=== PATIENT | male | born 1975 | race African-American/Black ===

== ENCOUNTER 2020-06-02 01:31 | Emergency (ER) | payer OTHER ==
[2020-06-02] MEDS ORDERED: diphenhydrAMINE HCL 50 MG CAPSULE PO ONE (01:45)
[2020-06-02] MEDS ORDERED: predniSONE 20 MG TABLET (UD) PO ONE (01:52)
[2020-06-02] MEDS ORDERED: diphenhydrAMINE HCL 25 MG CAPSULE (FP) PO ONE ×2 (01:52→02:04)
[2020-06-02] MEDS ORDERED: IBUPROFEN 600 MG TABLET (FP) PO ONE ×2 (01:53→02:05)
[2020-06-02 01:56] VITALS: BMI 27.1
[2020-06-02] MEDS ORDERED: predniSONE 20 MG TABLET (UD) ONE (02:04)
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
[2020-06-02 03:31] VITALS: BP 143/89; PULSE 79; TEMP 98.1
== END 2020-06-02 03:32 | disposition home or self-care (01) ==
LOC: JER 01:31
DX: R60.9 Edema, unspecified (principal); T78.02XA Anaphylactic reaction due to shellfish (crustaceans), initial encounter
CPT/HCPCS: 99283-25

== ENCOUNTER 2020-08-11 07:54 | Day surgery (SDC) | payer OTHER ==
--- NOTE | 2020-08-10 07:50 | HP ---
[facility] - Chief Complaint Chief Complaint: right knee pain - Past Medical History Allergies/Adverse Reactions: Allergies Allergy/AdvReac Type Severity Reaction Status Date / Time Penicillins Allergy Rash Verified 08/09/20 14:00 shellfish derived Allergy Verified 08/09/20 14:43 - Current Medications Current Medications: Home Medications Medication Instructions Recorded NK [No Known Home Medication] 08/09/20 [facility]ellite Physical Exam - Physical Examination General Appearance: Well Nourished, Well Developed, Alert & Oriented x3 ENT: Clear Lung: Normal air movement Extremities: Other (right knee- + swelling, + ttp, decr rom, + mcmurrays, nvi) Neurological: Intact, Alert, Oriented [facility]ellite Impression/Plan - Impression/Plan Impression: right knee internal derangement Operative Procedure: right knee arthroscopy Date to be Performed: 08/10/20
--- NOTE | 2020-08-10 08:55 | HP ---
[facility] - Chief Complaint Chief Complaint: right elbow pain - Past Medical History Allergies/Adverse Reactions: Allergies Allergy/AdvReac Type Severity Reaction Status Date / Time Penicillins Allergy Rash Verified 08/09/20 14:00 shellfish derived Allergy Verified 08/09/20 14:43 - Current Medications Current Medications: Home Medications Medication Instructions Recorded NK [No Known Home Medication] 08/09/20 Satellite Physical Exam - Physical Examination General Appearance: Well Nourished, Well Developed, Alert & Oriented x3 ENT: Clear Lung: Normal air movement Extremities: Other (right elbow- + ttp laterally, decr rom, nvi) Neurological: Intact, Alert, Oriented Satellite Impression/Plan - Impression/Plan Impression: right lateral epicondylitis Operative Procedure: right elbow lateral epicondylectomy Date to be Performed: 08/10/20
[2020-08-10 15:35] VITALS: BMI 34.0
[2020-08-11] MEDS ORDERED: PROPOFOL 20 ML ONE ×2 (08:36→10:41)
[2020-08-11] MEDS ORDERED: MIDAZOLAM HCL 2 MG/2 ML SINGLE DOSE VIAL ONE ×2 (09:41)
[2020-08-11] MEDS ORDERED: fentaNYL CITRATE 250 MCG/5 ML VIAL ONE (09:41)
[2020-08-11] MEDS ORDERED: ROCURONIUM BROMIDE 50 MG/5 ML VIAL ONE (10:53)
[2020-08-11] MEDS ORDERED: BUPIVACAINE HCL/PF 0.5% (5MG/ML) 10 ML VIAL ONE (11:25)
[2020-08-11] MEDS ORDERED: BUPIVACAINE HCL/PF 0.5% (5 MG/ML) 30 ML VIAL IJ ONE (11:54)
--- NOTE | 2020-08-11 11:59 | OP ---
Operative Note - Note: Operative Date: 08/11/20 (tereso) Pre-Operative Diagnosis: right lateral epicondylitis Operation: right elbow lateral epicondylectomy, ECRB repair Post-Operative Diagnosis: Same as Pre-op Surgeon: Ab Morales Aerospace Engineer Officer Armament: Dony Pickard Anesthesiologist/NEWBORN PHOTOGRAPHER: Amadou Sales Anesthesia: General, Local Specimens Removed: lateral epicondyle Estimated Blood Loss (mls): 0 (tourniquet)
[2020-08-11] MEDS ORDERED: ONDANSETRON 4 MG/2 ML VIAL IVPUSH PRN (12:16)
[2020-08-11] MEDS ORDERED: oxyCODONE HCL 5 MG TABLET PO PRN (12:16)
[2020-08-11] MEDS ORDERED: PROMETHAZINE HCL 25 MG/1 ML VIAL IVPUSH PRN (12:16)
[2020-08-11] MEDS ORDERED: LACTATED RINGERS SOLUTION 1,000 ML IV SCH (12:30)
--- NOTE | 2020-08-11 12:39 | OP ---
DATE OF OPERATION: 08/11/2020 PREOPERATIVE DIAGNOSIS: Right elbow lateral epicondylitis, tear of extensor carpi radialis brevis tendon. POSTOPERATIVE DIAGNOSIS: Right elbow lateral epicondylitis, tear of extensor carpi radialis brevis tendon. PROCEDURE: Right elbow lateral epicondylectomy and repair of extensor carpi radialis brevis tendon. SURGEON: Ab Morales MD BILLBOARD MECHANIC: ESTEFANÍA Leggett ANESTHESIOLOGIST: Devon Sales MD ANESTHESIA: LMA anesthesia with local injection of 20 mL of 0.5% Marcaine, 1% lidocaine mix. DRAINS: None. COMPLICATIONS: None. SPECIMEN: Chronic inflammatory tissue right elbow lateral epicondyle. BLOOD LOSS: None. BLOOD GIVEN: None. FLUID REPLACEMENT: Plasma-Lyte 1000 mL. INDICATIONS: This patient is a 45-year-old male with a preoperative diagnosis of significant right elbow pain, chronic right elbow lateral epicondylitis and then a tear of the ECRB tendon. After understanding the potential risks, complications, alternatives and benefits of surgery versus nonsurgical treatment the patient elected to undergo this procedure. DESCRIPTION OF PROCEDURE: Patient was brought to the operating room, peripheral IV placed, IV sedation given. He was given 3 g of IV Ancef. LMA anesthesia was induced. Tourniquet was applied to the right upper arm. The right upper extremity was then prepped and draped in a sterile fashion, elevated, exsanguinated with an Esmarch bandage and tourniquet inflated to 250 mmHg. A small curvilinear incision was marked out and made directly over the point of maximum tenderness over the ECRB tendon origin with access to the [id number] position. Subcutaneous hemostasis was achieved with the bipolar cautery. Dissection was done with a Littler scissors down to the common extensor tendon. Small self-retaining retractors were placed into the wound. Next, a fresh No. 15 scalpel blade was utilized to make 2 longitudinal slits within the fibers of the ECRB and common extensor tendon, one in the central portion of the lateral epicondyle and one in the [id number] position. First, self-retaining retractors were placed into the fiber split of the ECRB tendon. Chronic inflammatory tissue was identified. It was excised with a fresh No. 15 scalpel blade and a curette. It was passed off the field as specimen. The lateral epicondyle was mildly decorticated, the tendon scraped and a small 0.062 K-wire was used to drill 6 drill holes within this longitudinal slit in the lateral epicondyle until marrow contents came out. The tear of the ECRB which was identified as well as the longitudinal split were then closed with 2-0 Vicryl suture in a running locking baseball stitch manner. Next, exactly the same thing was done in the [id number] position. There was no primary tear here. I made a longitudinal split. Area was decorticated with a curette, scraped and then repaired with the 2-0 Vicryl suture. It all came together quite nicely. Additional drill holes were made with a 0.062 K-wire more posterior to the middle split in the inferior portion of the lateral epicondyle. The area was then copiously irrigated and washed out. The deep fascia layer closed over the repair with 2-0 Vicryl suture. The deep dermal closed with 2-0 Vicryl suture. Final skin reapproximation was done a running subcuticular 4-0 Biosyn stitch. The area was then washed and dried, covered with Steri-Strips, 4 x 4's, Webril and a 5-inch posterior splint Ortho-Glass was applied and wrapped with 2 Rosas bandages. The tourniquet was taken down after a total tourniquet time of about 50 minutes. There were no complications during the case. The patient tolerated the procedure quite well and was brought to the ambulatory recovery room in stable condition. Luis [id number]
[2020-08-11] MEDS ORDERED: oxyCODONE HCL 5 MG TABLET ONE (13:17)
[2020-08-11] MEDS ORDERED: oxyCODONE HCL 5 MG TABLET PO ONE (13:20)
[2020-08-11 13:35] VITALS: TEMP 97.9
[2020-08-11 14:11] VITALS: BP 128/80; PULSE 75
--- NOTE | 2020-08-15 16:12 | PATH ---
Surgical Pathology Report Patient Name: JULI ALVAREZ Med. Rec. #: [id number] /Age/Gender: 1975 (Age: 45) / M Account: [id number] Location: [facility] AMBUL[facility] Taken: 08/11/2020 Received: 08/11/2020 Reported: 08/15/2020 Physicians: Ab Morales M.D. Specimen(s) Received RIGHT LATERAL EPICONDYLE Clinical History Right lateral epicondylitis Final Diagnosis UPPER CONDYLE, LATERAL, RIGHT, EPICONDYLECTOMY, REPAIR OF TENDON: FRAGMENTS OF BENIGN CARTILAGE, FIBROCONNECTIVE TISSUE, CARTILAGE, AND FIBROADIPOSE TISSUE. Electronically Signed Ivon Beltrán M.D. Gross Description Received in formalin labeled "right lateral upper condyle," is a 1.0 x 1.0 x 0.2 cm aggregate of gomez-yellow and brown soft tissue fragments. The formalin is filtered and the specimen is entirely submitted in one cassette. 08/12/2020 saudi08/12/2020
== END 2020-08-11 14:05 | disposition home or self-care (01) ==
LOC: FASU 07:54
PROVIDERS: ATTEND Orthopaedic Surgery
PROC: 0JBD0ZZ Excision of Right Upper Arm Subcutaneous Tissue and Fascia, Open Approach (ICD-10-PCS; 2020-08-11)
PROC: 0LQ30ZZ Repair Right Upper Arm Tendon, Open Approach (ICD-10-PCS; principal; 2020-08-11 11:05)
DX: M77.11 Lateral epicondylitis, right elbow (principal)
CPT/HCPCS: 88304-TC; 94760

== ENCOUNTER 2021-04-22 13:25 | Emergency (ER) | payer OTHER ==
[2021-04-22 13:31] VITALS: BP 159/85; PULSE 104; TEMP 98.5; BMI 33.3
[2021-04-22 14:19] LABS: BASO % 0.6 % (0-2.0); EOS % 1.2 % (0-4.5); HEMATOCRIT 44.6 % (35.4-49); HEMOGLOBIN 14.8 GM/dL (11.7-16.9); LYMPH % 21.5 % (8-40); MCH 31.2 pg (25.7-33.7); MCHC 33.2 g/dl (32.0-35.9); MEAN PLT VOLUME 7.9 fl (7.5-11.1); MONO % 10.5 % (3.8-10.2); NEUT % 66.2 % (42.8-82.8); PLATELET COUNT 240 10^3/uL (134-434); RBC 4.74 M/mm3 (4.00-5.60); RDW 14.2 % (11.9-15.9); WHITE BLOOD COUNT 8.9 K/mm3 (4.0-10.0)
[2021-04-22 14:25] LABS: INR 0.92 (0.83-1.09); PROTHROMBIN TIME (PATIENT) 11.4 SEC (9.7-13.0)
[2021-04-22 14:43] LABS: CALCIUM 9.4 mg/dL (8.5-10.1)
[2021-04-22 14:44] LABS: ALBUMIN 4.2 g/dl (3.4-5.0); BLOOD UREA NITROGEN 16.1 mg/dL (7-18)
[2021-04-22 14:47] LABS: CREATININE 1.1 mg/dL (0.55-1.3)
[2021-04-22 14:48] LABS: BILIRUBIN,TOTAL 0.6 mg/dL (0.2-1)
[2021-04-22 14:49] LABS: TOT PROT 7.6 g/dl (6.4-8.2)
== END 2021-04-22 15:04 | disposition home or self-care (01) ==
LOC: JER 13:25 → JERFT 13:25
DX: H11.33 Conjunctival hemorrhage, bilateral (principal)
CPT/HCPCS: 36415; 80053; 85025; 85610; 86850; 86900; 86901; 99283-25

== ENCOUNTER 2021-10-17 02:49 | Emergency (ER) | payer OTHER ==
[2021-10-17] MEDS ORDERED: BACITRACIN 15 GM TUBE TOPICAL OINTMENT ONE (05:24)
[2021-10-17] MEDS ORDERED: BACITRACIN 15 GM TUBE TOPICAL OINTMENT TP ONE (05:28)
[2021-10-17 06:30] VITALS: BP 150/83; PULSE 105; TEMP 98.3; BMI 34.7
== END 2021-10-17 05:29 | disposition home or self-care (01) ==
LOC: JER 02:49
DX: T23.102A Burn of first degree of left hand, unspecified site, initial encounter (principal); X10.2XXA Contact with fats and cooking oils, initial encounter
CPT/HCPCS: 99283-25

== ENCOUNTER 2021-12-14 10:34 | Emergency (ER) | payer OTHER ==
[2021-12-14 11:12] VITALS: BP 134/82; PULSE 104; TEMP 98.5; BMI 25.7
[2021-12-14 11:31] LABS: BASO % 0.6 % (0-2.0); EOS % 0.3 % (0-4.5); HEMATOCRIT 41.8 % (35.4-49); HEMOGLOBIN 13.7 GM/dL (11.7-16.9); LYMPH % 19.8 % (8-40); MCH 31.1 pg (25.7-33.7); MCHC 32.9 g/dl (32.0-35.9); MEAN CELL VOLUME 94.8 fl (80-96); MEAN PLT VOLUME 8.3 fl (7.5-11.1); MONO % 6.9 % (3.8-10.2); NEUT % 72.4 % (42.8-82.8); PLATELET COUNT 222 10^3/uL (134-434); RBC 4.41 M/mm3 (4.00-5.60); WHITE BLOOD COUNT 7.9 K/mm3 (4.0-10.0)
[2021-12-14 11:55] LABS: CHLORIDE 109 mmol/L (98-107); SODIUM 144 mmol/L (136-145)
[2021-12-14 11:56] LABS: CALCIUM 9.4 mg/dL (8.5-10.1)
[2021-12-14 11:57] LABS: ALBUMIN 4.2 g/dl (3.4-5.0); ANION GAP 3 MMOL/L (8-16); CO2 32 mmol/L (21-32); GLUCOSE,RANDOM 101 mg/dL (74-106)
[2021-12-14 12:00] LABS: CREATININE 1.2 mg/dL (0.55-1.3); SGOT/AST 23 U/L (15-37); SGPT/ALT 31 U/L (13-61)
[2021-12-14 12:02] LABS: BILIRUBIN,TOTAL 0.6 mg/dL (0.2-1); TOT PROT 7.7 g/dl (6.4-8.2)
[2021-12-14 12:03] LABS: ALK PHOS 64 U/L (45-117)
== END 2021-12-14 13:24 | disposition home or self-care (01) ==
LOC: JER 10:34
DX: Z04.1 Encounter for examination and observation following transport accident (principal)
CPT/HCPCS: 36415; 70450-TC; 71045-TC-FY; 80053; 84484; 85025; 93005; 93010; 99285-25

== ENCOUNTER 2022-01-27 19:24 | Emergency (ER) | payer OTHER ==
[2022-01-27] MEDS ORDERED: SODIUM CHLORIDE 0.9% 500 ML INFUS.BAG IV ONE (19:36)
[2022-01-27] MEDS ORDERED: ACETAMINOPHEN 1000 MG/100 ML BAG IVPB ONE (19:37)
[2022-01-27 19:38] VITALS: BMI 34.7
[2022-01-27] MEDS ORDERED: ACETAMINOPHEN INJECTION 100 ML IVPB ONE (19:40)
[2022-01-27 19:56] LABS: BASO % 0.4 % (0-2.0); HEMOGLOBIN 13.7 GM/dL (11.7-16.9); MCH 31.8 pg (25.7-33.7); MCHC 34.3 g/dl (32.0-35.9); MEAN CELL VOLUME 92.6 fl (80-96); MEAN PLT VOLUME 8.2 fl (7.5-11.1); MONO % 8.5 % (3.8-10.2); NEUT % 64.1 % (42.8-82.8); PLATELET COUNT 194 10^3/uL (134-434); RBC 4.33 M/mm3 (4.00-5.60); RDW 13.8 % (11.9-15.9)
[2022-01-27 20:03] LABS: INR 1.08 (0.83-1.09); PROTHROMBIN TIME (PATIENT) 12.4 SEC (9.7-13.0)
[2022-01-27 20:18] LABS: ALBUMIN 4.2 g/dl (3.4-5.0); CALCIUM 9.4 mg/dL (8.5-10.1)
[2022-01-27 20:19] LABS: BLOOD UREA NITROGEN 15.2 mg/dL (7-18)
[2022-01-27 20:22] LABS: CREATININE 1.4 mg/dL (0.55-1.3)
[2022-01-27 20:23] LABS: BILIRUBIN,TOTAL 0.7 mg/dL (0.2-1); TOT PROT 7.4 g/dl (6.4-8.2)
[2022-01-27] MEDS ORDERED: CEFAZOLIN 1 GM in DEXTROSE 5%-WATER - 50 ML IVPB ONE (20:44)
[2022-01-27 20:54] VITALS: BP 125/78; PULSE 100; TEMP 98.2
[2022-01-27] MEDS ORDERED: ceFAZolin SODIUM 1 GM VIAL ONE (21:10)
[2022-01-27] MEDS ORDERED: DIPHTH,PERTUSS(ACELL),TET 0.5 ML DISP.SYRIN IM ONE ×2 (21:34→21:38)
== END 2022-01-27 22:29 | disposition home or self-care (01) ==
LOC: JER 19:24
PROC: 3E0333Z Introduction of Anti-inflammatory into Peripheral Vein, Percutaneous Approach (ICD-10-PCS; principal; 2022-01-27)
PROC: 3E03329 Introduction of Other Anti-infective into Peripheral Vein, Percutaneous Approach (ICD-10-PCS; 2022-01-27)
PROC: 3E033NZ Introduction of Analgesics, Hypnotics, Sedatives into Peripheral Vein, Percutaneous Approach (ICD-10-PCS; 2022-01-27)
PROC: 3E0234Z Introduction of Serum, Toxoid and Vaccine into Muscle, Percutaneous Approach (ICD-10-PCS; 2022-01-27)
DX: S71.112A Laceration without foreign body, left thigh, initial encounter (principal); X99.1XXA Assault by knife, initial encounter
CPT/HCPCS: 36415; 71045-TC-FY; 72170-TC-FY; 73706-TC-RT; 80053; 85025; 85610; 85730; 86850; 86900; 86901; 90715; 93005; 93010; 99285-25; Q9967